=== PATIENT | male | born 1970 | race Two or more races ===

== ENCOUNTER 2024-10-17 10:01 | Emergency (ER) | payer OTHER ==
[~2024-10-17] VITALS: Ht 170.2 cm; Wt 77.1 kg
[2024-10-17 10:16] VITALS: BP 112/75; O2SAT 98
[2024-10-17 12:24] LABS: HEMATOCRIT 46.2 % (39.0-48.0); HEMOGLOBIN 15.5 g/dL (13-16.00); MEAN CELL VOLUME 88.9 fL (80.0-100.00); MEAN CORPUSCULAR HEMOGLOBIN 29.8 pg (27.00-32.0); MEAN CORPUSCULAR HGB CONC 33.5 g/dl (32.0-36.0); PLATELET COUNT 217 K/uL (150-450); RED CELL DISTRIBUTION WIDTH 14.4 % (11.5-14.5)
== END 2024-10-17 14:24 | disposition home or self-care (01) ==
LOC: ER 10:02
PROVIDERS: General Practice
DX: B34.9 Viral infection, unspecified (principal); Z20.822 Contact with and (suspected) exposure to COVID-19